=== PATIENT | male | born 1965 | race Caucasian/White ===

== ENCOUNTER 2017-03-31 14:45 | Emergency (ER) | payer BC ==
--- NOTE | 2017-03-31 16:02 | XRAY Preliminary Report ---
Exam: XR CHEST 2 VIEW X-RAY IMPRESSION: Normal 2-view chest radiography. [facility] SITE ID: [id number]
--- NOTE | 2017-03-31 16:05 | XRAY Report ---
EXAM: CHEST RADIOGRAPHY EXAM DATE: 03/31/2017 03:47 PM. CLINICAL HISTORY: History of asthma as a child. Cough and congestion for 10 days. COMPARISON: 11/26/2012. TECHNIQUE: 2 views. FINDINGS: Lungs/Pleura: No focal opacities evident. No pleural effusion. No pneumothorax. Normal volumes. Mediastinum: Heart and mediastinal contours are unremarkable. Other: None. IMPRESSION: Normal 2-view chest radiography. [facility] Referring Provider Line: [phone] SITE ID: [id number]
--- NOTE | 2017-03-31 16:31 | ED Physician Documentation ---
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 at night for 10 days not getting better sometimes feels wheezy concerned about going to work Review of Systems Constitutional: reports: Fatigue Nose: reports: Congestion Respiratory: reports: Cough Endocrine: denies: Easy bruising / bleeding Immunocompromised: denies: Immunocompromised PD PAST MEDICAL HISTORY - Past Medical History Past Medical History: Yes - Past Surgical History Past Surgical History: No - Present Medications Home Medications: Ambulatory Orders Medication Instructions Recorded Confirmed Albuterol Sulfate [Proair Hfa 2 puffs INH Q4H PRN #1 inhaler 03/31/17 Inhaler] Benzonatate [Tessalon] 100 mg PO TID PRN #20 capsule 03/31/17 Fluticasone [Flonase] 1 sprays IBLLIE BID PRN #1 bottle 03/31/17 guaiFENesin/DEXTROMETHORPHAN 10 ml PO Q6H PRN #120 ml 03/31/17 [Robitussin Dm] - Allergies Allergies/Adverse Reactions: Allergies Allergy/AdvReac Type Severity Reaction Status Date / Time No Known Drug Allergies Allergy Verified 03/31/17 14:50 - Social History Does the pt smoke?: No Smoking Status: Never smoker Does the pt have substance abuse?: No - Immunizations Immunizations are current?: Yes PD ED PE NORMAL - Vitals Vital signs reviewed: Yes - General General: Alert and oriented X 3 - HEENT HEENT: PERRL, Ears normal, Moist mucous membranes, Pharynx benign - Neck Neck: Supple, no meningeal sign - Cardiac Cardiac: RRR - Respiratory Respiratory: Other (coarse bases julius o wheeze) - Abdomen Abdomen: Soft, Non tender - Derm Derm: Normal color - Neuro Neuro: Alert and oriented X 3 Results - Vitals Vitals: Vital Signs - 24 hr 03/31/17 14:47 Temperature 37.3 C Heart Rate 84 Respiratory 20 Rate Blood Pressure 150/93 H O2 Saturation 98 Oxygen O2 Source Room air - EKG (time done) 1454 Rate: Rate (enter#) (68) Rhythm: NSR, Other (PVC) Ischemia: No: Q waves (small preceding R inf leads so not Q waves as sugegsted by auto interp) - Rads (name of study) CXR Radiology: See rad report (NACPD) Departure - Departure Disposition: 01 Home, Self Care Clinical Impression: PVC (premature ventricular contraction) URI (upper respiratory infection) Qualifiers: URI type: unspecified viral URI Qualified Code(s): J06.9 - Acute upper respiratory infection, unspecified Instructions: ED Upper Resp Infec No Abx Tx, Premature Ventricular Contract About Follow-Up: Fernando Montalvo MD [Primary Care Provider] - Prescriptions: Albuterol Sulfate [Proair Hfa Inhaler] 2 puffs INH Q4H PRN #1 inhaler PRN Reason: Shortness Of Air/Wheezing Benzonatate [Tessalon] 100 mg PO TID PRN #20 capsule PRN Reason: to ease cough Fluticasone [Flonase] 1 sprays BILLIE BID PRN #1 bottle PRN Reason: congestion guaiFENesin/DEXTROMETHORPHAN [Robitussin Dm] 10 ml PO Q6H PRN #120 ml PRN Reason: Cough Comments: The xray is fine - no pneumonia. Your EKG showed an extra beat called a premature ventricular beat - these can be felt as palpitations but are not dangerous unless many of them occur in a row (not you case) If you have lots of palpitations a wear at home heart monitor might be useful ( your PMD can arrange this) So I think it is safe for you to go home Please rest and drink plenty of fluids I write a note for work. And prescribed some medications to ease your symptoms Forms: Activity restrictions
[2017-03-31 16:48] VITALS: BP 128/82
== END 2017-03-31 16:58 | disposition home or self-care (01) ==
LOC: ED 14:45
DX: I49.3 Ventricular premature depolarization (principal); J06.9 Acute upper respiratory infection, unspecified
CPT/HCPCS: 71046; 93005; 99283

== ENCOUNTER 2018-01-02 10:49 | Observation (INO) | payer BC ==
[2018-01-02] MEDS ORDERED: SODIUM CHLORIDE 0.9% 1,000 ML IV ONE (11:33)
[2018-01-02] MEDS ORDERED: cefTRIAXone 1 GM in SODIUM CHLORIDE 0.9% MINIBAG 100 ML IV STA (11:33)
[2018-01-02] MEDS ORDERED: DEXAMETHASONE 10 MG/ML VIAL IV STA (11:33)
--- NOTE | 2018-01-02 11:36 | ED Physician Documentation ---
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 had L lower molar extraction was on amox developed swelling changed to augmentin now swelling worse, sublingual swelling diff swallowing a little SOA and subj fever seen by maxillofacial and sent for CT and labs and specialist will be to ER to see pt Review of Systems Constitutional: reports: Fever Throat: reports: Dental pain / toothache Cardiac: denies: Chest pain / pressure Respiratory: reports: Dyspnea GI: denies: Abdominal Pain, Vomiting, Diarrhea Musculoskeletal: reports: Neck pain (anterior) Endocrine: denies: Easy bruising / bleeding Immunocompromised: denies: Immunocompromised PD PAST MEDICAL HISTORY - Past Surgical History Past Surgical History: No - Present Medications Home Medications: Ambulatory Orders Medication Instructions Recorded Confirmed Albuterol Sulfate [Proair Hfa 2 puffs INH Q4H PRN 01/02/18 01/02/18 Inhaler] - Allergies Allergies/Adverse Reactions: Allergies Allergy/AdvReac Type Severity Reaction Status Date / Time No Known Drug Allergies Allergy Verified 03/31/17 14:50 - Social History Does the pt smoke?: No Smoking Status: Never smoker Does the pt have substance abuse?: No - Immunizations Immunizations are current?: Yes PD ED PE NORMAL - Vitals Vital signs reviewed: Yes - HEENT HEENT: Other (no trisumus, no dry socket, sublingual erythema swelling and TTP extensing to anterior neck) - Cardiac Cardiac: RRR - Respiratory Respiratory: No respiratory distress, Clear bilaterally (no wheeze or stridor) - Derm Derm: Normal color - Neuro Neuro: Alert and oriented X 3 Results - Vitals Vitals: Vital Signs - 24 hr 01/02/18 01/02/18 10:51 14:05 Temperature 36.8 C Heart Rate 73 79 Respiratory 16 16 Rate Blood Pressure 146/99 H 129/84 H O2 Saturation 99 96 Oxygen O2 Source Room air - Labs Labs: Laboratory Tests 01/02/18 01/02/18 11:30 11:30 WBC 7.4 RBC 4.51 L Hgb 14.7 Hct 41.0 L MCV 91.1 MCH 32.5 H MCHC 35.7 RDW 12.5 Plt Count 175 MPV 8.1 Neut # (Auto) 6.3 Lymph # (Auto) 0.5 L [place] # (Auto) 0.6 Eos # (Auto) 0.0 Baso # (Auto) 0.0 Absolute Nucleated RBC 0.00 Nucleated RBC % 0.0 Sodium 136 Potassium 4.1 Chloride 100 L Carbon Dioxide 28 Anion Gap 8.0 BUN 17 Creatinine 0.8 Estimated GFR (MDRD) 101 Glucose 117 H Calcium 8.8 - Rads (name of study) CT neck with IV con Radiology: See rad report (abnormal fascial plane edema L submandibular space extending to anterior cervical space, bone cavity l mandible c/w extraction and so inflammation and cellulitis could be 2/2 this, reactive upper cervical reactive lymphadenopathy) PD MEDICAL DECISION MAKING - ED course ED course: 1400 - no sig change after IV steroids and rocephin CT shows STS cellultiis but not abscess awaiting Dr herrera pt updated Dr Herrera in to see pt [address] in obs for futher IV ab and care Departure - Departure Disposition: ED Place in Observation Clinical Impression: Ludwigs angina Condition: Good Discharge Date/Time: 01/02/18 15:26
[2018-01-02 11:38] LABS: BASOPHILS % (AUTO) 0.3 %; EOSINOPHILS % (AUTO) 0.4 %; HGB - HEMOGLOBIN 14.7 g/dL (14.0-18.0); LYMPHOCYTES # (AUTO) 0.5 10^3/uL (1.5-3.5); LYMPHOCYTES % (AUTO) 7.3 %; MEAN CORPUSCULAR HEMOGLOBIN 32.5 pg (27.0-31.0); MEAN CORPUSCULAR HGB CONC 35.7 g/dL (32.0-36.0); MEAN CORPUSCULAR VOLUME 91.1 fL (80.0-94.0); MEAN PLATELET VOLUME 8.1 fL (7.4-11.4); MONOCYTES # (AUTO) 0.6 10^3/uL (0.0-1.0); MONOCYTES % (AUTO) 7.4 %; NEUTROPHILS # (AUTO) 6.3 10^3/uL (1.5-6.6); NEUTROPHILS % (AUTO) 84.6 %; PLT - PLATELET COUNT 175 10^3/uL (130-450); RED BLOOD COUNT 4.51 10^6/uL (4.70-6.10); RED CELL DISTRIBUTION WIDTH 12.5 % (12.0-15.0); WHITE BLOOD COUNT 7.4 x10^3/uL (4.8-10.8)
[2018-01-02 11:50] LABS: CALCIUM 8.8 mg/dL (8.5-10.3); CREATININE 0.8 mg/dL (0.6-1.2)
[2018-01-02] MEDS ORDERED: IOPAMIDOL-300 100 ML VIAL ONE (12:22)
[2018-01-02] MEDS ORDERED: IOPAMIDOL-300 100 ML VIAL IVP ONE (12:26)
--- NOTE | 2018-01-02 13:15 | CT Report ---
Reason: sublingual and ant neck pain and swelling s/p LL t Procedure Date: 01/02/2018 Accession Number: [id number] / [id number] Procedure: CT - Neck Soft Tissue W/ CPT Code: FULL RESULT: EXAM: CT SOFT TISSUE NECK WITH CONTRAST. EXAM DATE: 01/02/2018 12:27 PM. HISTORY: Sublingual and anterior neck pain and swelling. COMPARISONS: None. TECHNIQUE: Routine soft tissue neck CT protocol. (Note the anterior aspect of the face from the orbits through the jaw are not included on this study.) Reconstructions: Coronal and sagittal. IV contrast: 80 cc Isovue-300. In accordance with CT protocol optimization, one or more of the following dose reduction techniques were utilized for this exam: automated exposure control, adjustment of mA and/or KV based on patient size, or use of iterative reconstructive technique. FINDINGS: Visualized Intracranial Contents: Unremarkable. Orbits: Partially visualized posterior orbits are unremarkable Sinuses: Visualized paranasal sinuses and mastoid air cells are clear. Oral cavity: The visualized oral cavity is unremarkable. The floor of the mouth is symmetric. Note is made of bone cavity filled with soft tissue and gas from extraction of left mandibular posterior tricuspid tooth. No cortical erosion is seen. Pharynx : Pharyngeal mucosa is unremarkable. The infratemporal fossa, parapharyngeal spaces, and retropharyngeal space are unremarkable. The base of the tongue is symmetric and unremarkable. The airway is patent. Larynx: Larynx and supraglottic airway are patent without mass lesion. Vocal cords are symmetric. The visualized trachea is unremarkable. Parotid and Submandibular Glands: Symmetric and unremarkable. Lymph Nodes: Mild prominence to level 1 and level 2 cervical lymph nodes are seen, greater on the left. No hypodensity is seen to suggest abscess. Soft tissues: Moderate fascial plane edema is seen centered in the left upper neck and lower face. This involves the submandibular space and adjacent anterior cervical space. Minimal thickening of the left platysma muscle is noted. No abnormal fluid collection is seen. No mass lesion or abnormal enhancement. Vascular Structures: Patent and unremarkable. Thyroid Gland: Normal. Lung: The visualized lung apices are clear. Bones: No evidence of acute fracture or malalignment. There are mild degenerative changes. Other: None. IMPRESSION: 1. Abnormal fascial plane edema in the left submandibular space extending to the anterior cervical space. Etiology of this is unknown. Note there is bone cavity in the left mandible from extraction of left posterior tricuspid tooth. No cortical erosion is seen; however, inflammatory process and cellulitis may be secondary to tooth extraction. 2. Mild reactive upper cervical lymphadenopathy, greater on the left. [facility]
[2018-01-02] MEDS ORDERED: ONDANSETRON 4 MG/2 ML VIAL IVP PRN (14:46)
[2018-01-02] MEDS ORDERED: SODIUM CHLORIDE FLUSH 0.9% 10 ML SYRINGE IVP PRN (14:46)
[2018-01-02] MEDS ORDERED: MORPHINE 2 MG/ML CARPUJECT IVP PRN (14:46)
[2018-01-02] MEDS ORDERED: ONDANSETRON ODT 4 MG TABLET TL PRN (14:46)
[2018-01-02] MEDS ORDERED: ALBUTEROL NEB 2.5 MG/3 ML INH PRN (14:55)
--- NOTE | 2018-01-02 15:03 | HISTORY & PHYSICAL EXAMINATION ---
Chief Complaint - Chief Complaint Chief Complaint: Neck swelling History of Present Illness - Admitted From Admitted From:: ER - History of Present Illness HPI Comment/Other: Ben is a 52 yo M who had tooth #18 removed about seven days ago. At that time he had no swelling but did complain of mild submandibular space ttp. Postoperatively he was placed on amoxicillin. He reported to my office yesterday with 1 day duration rapidly increasing submandibular space swelling and pain. Subjective fever. Denies n,v. Switched abx to augmentin, f/u in 24 hrs. Came back today and had slightly worsened. Sent to ER for cbc w/ dif and ct neck w/ contrast. Endorses dysphagia, dyspnea, descending deep neck pain, globus, voice change no drainage intraorally History - Past Medical History Cardiovascular: reports: None Respiratory: reports: Other (feeling of airway swelling and difficulty breating when supine) Neuro: reports: None Endocrine/Autoimmune: reports: None GI: reports: None HEENT: reports: Other (as above in HPI) Psych: reports: Anxiety Musculoskeletal: reports: None Derm: reports: None MRSA Hx?: No - Past Surgical History General: reports: Other (hernia repair and R knee scope) - Family & Social History Family History Comment/Other: Family history reviewed and no relevant history to this encounter Living arrangement: At home Living Situation: With family - Substance History Use: Uses substance without health or social issues: NONE Meds/Allgy - Home Medications Home Medications: Ambulatory Orders Medication Instructions Recorded Confirmed Albuterol Sulfate [Proair Hfa 2 puffs INH Q4H PRN #1 inhaler 03/31/17 Inhaler] Benzonatate [Tessalon] 100 mg PO TID PRN #20 capsule 03/31/17 Fluticasone [Flonase] 1 sprays BILLIE BID PRN #1 bottle 03/31/17 guaiFENesin/DEXTROMETHORPHAN 10 ml PO Q6H PRN #120 ml 03/31/17 [Robitussin Dm] - Allergies Allergies/Adverse Reactions: Allergies Allergy/AdvReac Type Severity Reaction Status Date / Time No Known Drug Allergies Allergy Verified 03/31/17 14:50 Review of Systems - Other Findings Other Findings: A 14 point ROS was completed and found to be negative except as noted above in HPI Exam - Vital Signs Reviewed Vital Signs: Yes Vital Signs: Vital Signs x48h Temp Pulse Resp BP Pulse Ox 01/02/18 14:05 79 16 129/84 H 96 01/02/18 10:51 36.8 C 73 16 146/99 H 99 - Physical Exam General Appearance: positive: Mild distress Eyes Bilateral: positive: PERRL, EOMI ENT: positive: Other (RAGHAVENDRA wnl. Occlusion S&R. extraction site #18 healing wnl. Moderate FOM edema and mild elevation and ttp, L>R. Tongue not elevated. No lateral pharyngeal swelling. Uvula midline.) Neck: positive: Other (Left submandibular space swelling, spreading anterior to the submental space and beginning to spread to the R submandibular space. The swelling is soft and the skin remains mobile. No fluctuance. The inferior border of the mandible is palpable throughout. Moderate erythema of the skin overlying the swelling. TTP coursing down the neck, nearing the sternal notch, but very mild and no edema past the thyroid cartilage.) Respiratory: positive: No respiratory distress, Breath sounds nml Cardiovascular: positive: Regular rate & rhythm, No murmur Peripheral Pulses: positive: 2+ Abdomen: positive: Non-tender, No distention. negative: Tenderness Skin: positive: Other (Clean,dry, and intact w/ exception of the erythema of the neck as described above.) Extremities: positive: Full ROM, Nml appearance Neurologic/Psychiatric: positive: Oriented x3, CN's nml (2-12) Conclusion/Plan - Problem List (1) Submandibular space infection Conclusion/Plan: Assessment: 52 yo M w/ 3 days of worsening L submandibular, L sublingual, submental spp cellulitis s/p removal of necrotic tooth #18. - worsening on outpt abx - dysphagia, globus, dyspnea, dysphonia - all ominous signs - wbc only 7.4, currently afebrile Plan: Monitor overnight - IV abx: Unasyn 3g q6h - elevate HOB 30 degrees - IV decadron 10m q6h x 24 hrs - re-eval in am, surgery if significantly worse Please call immediately if pt complains of worsening airway symptoms. [phone]. Kishor Kong DDS - Lab Results Fish Bones: 01/02/18 11:30 01/02/18 11:30 - Diagnostic Imaging Results Diagnostic Imaging Results: positive: Final report reviewed Diagnostic Imaging Results Comments: The CT neck w/ contrast demonstrates a generalized cellulitis of the deep spaces of the left neck with a focus around the submandibular space. There is also cellulitis of the overlying skin, but mild. No appreciable abscess. Very mild deviation of the airway to the R, but airway widely patent with mild effacement of the L pharyngeal wall. - Other Other Results/Comments: Failed outpatient antibiotics and close monitoring. Requires hospitalization for IV antibiotics and airway monitoring. Worsening of disease likely to result in airway compromise and need for urgent surgical intervention.
[2018-01-02] MEDS: DEXAMETHASONE 10 MG/ML VIAL IVP SCH ×2 (16:30→21:26)
[2018-01-02] MEDS: AMPICILLIN/SULBACTAM 3 GM in SODIUM CHLORIDE 0.9% MINIBAG 100 ML IV SCH ×2 (16:30→21:25)
[2018-01-02] MEDS: SODIUM CHLORIDE FLUSH 0.9% 10 ML SYRINGE IVP SCH (16:30)
[2018-01-02] MEDS: ACETAMINOPHEN 325 MG TABLET PO PRN (19:11)
[2018-01-03] MEDS ORDERED: SODIUM CHLORIDE 0.9% 1,000 ML IV SCH (00:01)
[2018-01-03] MEDS: SODIUM CHLORIDE FLUSH 0.9% 10 ML SYRINGE IVP SCH ×2 (00:10→09:48)
[2018-01-03] MEDS: ACETAMINOPHEN 325 MG TABLET PO PRN (03:54)
[2018-01-03] MEDS: DEXAMETHASONE 10 MG/ML VIAL IVP SCH ×2 (03:55→10:05)
[2018-01-03] MEDS: AMPICILLIN/SULBACTAM 3 GM in SODIUM CHLORIDE 0.9% MINIBAG 100 ML IV SCH ×2 (03:56→09:48)
[2018-01-03 08:28] VITALS: BP 137/65
[2018-01-03] MEDS ORDERED: POLYETHYLENE GLYCOL 3350 17 GM PACKET PO SCH (09:00)
--- NOTE | 2018-01-03 12:25 | PROVIDER PROGRESS NOTE ---
Subjective - Prog Note Date Prog Note Date: 01/03/18 Prog Note Time: 12:23 - Subjective Pt reports feeling: Improved (He reports significant improvement in swallowing and speaking.) Objective - Vital Signs/Intake & Output Vital Signs: Vital Signs x48h Temp Pulse Resp BP Pulse Ox 01/03/18 08:00 36.6 C 66 18 137/65 H 97 Intake & Output: Intake & Output 12/31/17 01/01/18 01/02/18 01/03/18 23:59 23:59 23:59 23:59 Intake Total 2059 132 Balance 2059 1319 - Objective General Appearance: positive: No acute distress, Alert Eyes Bilateral: positive: PERRL, EOMI ENT: positive: Other (There is swelling of the left sublingual gland. Clear saliva from the L yandel's duct. No purulence, no fluctuance RAGHAVENDRA wnl uvula midline, no lateral pharyngeal swelling L FOM edema, mild, improved. No R ROM edema) Neck: positive: Other (Significantly improved swelling. No ttp to the sternal notch as previously observed.) - Lab Results Fish Bones: 01/02/18 11:30 01/02/18 11:30 Assessment/Plan - Problem List (1) Submandibular space infection Impression: Significantly improved today. Etiology most likely related to tooth #18. Possibility of L sublingual salivary gland origin, will continue to monitor in office Plan: Discharge to home Continue augmentin as given prior to admit. f/u on Friday
== END 2018-01-03 12:50 | disposition home or self-care (01) ==
LOC: ED 10:49 → MS2 14:50
PROVIDERS: ADMIT Dentist Oral and Maxillofacial Surgery; ATTEND Dentist Oral and Maxillofacial Surgery
DX: L03.211 Cellulitis of face (principal); Z79.2 Long term (current) use of antibiotics; Z98.818 Other dental procedure status
CPT/HCPCS: 36415; 70491; 80048; 85025; 96365; 96366; 96367; 96375; 96376; 99283; 99284; A9270; G0378; Q9967

== ENCOUNTER 2018-05-17 13:37 | Emergency (ER) | payer BC ==
--- NOTE | 2018-05-17 14:20 | ED Physician Documentation ---
PD HPI UPPER EXT INJURY - Stated complaint Stated Complaint: HAND INJURY - Chief complaint Chief Complaint: Ext Problem - History obtained from History obtained from: Patient - History of Present Illness Location: Right, Hand Type of injury: Blunt / blow Timing - onset: How many days ago (5) Similar symptoms before: Has not had sx before - Additonal information Additional information: The patient is a 53-year-old male with right hand pain and swelling. He punched the dashboard of his car 5 days ago. There was initially no significant pain, but he is concerned now because persistent dorsal swelling and discomfort. It is worse since lifting rocks in his yard yesterday. He is right-hand dominant. He denies history of similar symptoms in the past. Review of Systems Constitutional: denies: Fever Nose: denies: Congestion Respiratory: denies: Dyspnea Skin: denies: Rash, Abrasion (s) Musculoskeletal: reports: Extremity pain (right hand), Extremity swelling (right hand) Neurologic: denies: Focal weakness, Numbness PD PAST MEDICAL HISTORY - Past Medical History Past Medical History: No Cardiovascular: None Respiratory: Other Neuro: None Endocrine/Autoimmune: None GI: None : None HEENT: Other Psych: Anxiety Musculoskeletal: None Derm: Other - Past Surgical History Past Surgical History: No General: Hiatal hernia repair Ortho: Carpal Tunnel surgery, Other - Present Medications Home Medications: Ambulatory Orders Medication Instructions Recorded Confirmed No Known Home Medications 05/17/18 05/17/18 - Allergies Allergies/Adverse Reactions: Allergies Allergy/AdvReac Type Severity Reaction Status Date / Time No Known Drug Allergies Allergy Verified 05/17/18 13:52 - Social History Does the pt smoke?: No Smoking Status: Never smoker Does the pt have substance abuse?: No - Immunizations Immunizations are current?: Yes PD ED PE NORMAL - Vitals Vital signs reviewed: Yes (Borderline systolic hypertension initially.) - General General: Alert and oriented X 3, Well developed/nourished - HEENT HEENT: Atraumatic - Respiratory Respiratory: No respiratory distress - Derm Derm: No rash - Extremities Extremities: Other (There is mild soft tissue swelling over the dorsum of the right hand, with mild tenderness to palpation of the mid hand, over the third and fourth metacarpals. There is no tenderness with axial loading on the individual digits. He has full flexion and extension of the DIP, PIP, and MCP joints. Distal neurovascular is intact.) - Neuro Neuro: Alert and oriented X 3, No motor deficit, No sensory deficit Results - Vitals Vitals: Vital Signs - 24 hr 05/17/18 13:50 Temperature 36 C L Heart Rate 78 Respiratory 18 Rate Blood Pressure 140/85 H O2 Saturation 95 Oxygen O2 Source Room air - Rads (name of study) right hand Radiology: Prelim report reviewed, EMP read contemporaneously, See rad report (Mild soft tissue swelling, without evidence of acute osseous injury.) PD MEDICAL DECISION MAKING - ED course Complexity details: reviewed results, re-evaluated patient, considered differential, d/w patient, d/w family ED course: The patient's presentation is most consistent with contusion to the right hand. There is no evidence of bony abnormality on radiographic imaging. On physical exam there is no evidence of infection. I discussed with him and his the expected course of injury, symptomatic treatment and outpatient follow-up, as well as potentially worrisome signs or symptoms that should prompt reevaluation in the emergency department. Departure - Departure Disposition: 01 Home, Self Care Clinical Impression: Contusion of right hand Qualifiers: Encounter type: initial encounter Qualified Code(s): S60.221A - Contusion of right hand, initial encounter Condition: Stable Instructions: ED Contusion Hand Follow-Up: Danny Montalvo MD [Primary Care Provider] - Comments: Keep your right hand elevated as much of the time as possible. You can use Tylenol or ibuprofen if needed for pain. Let pain be your guide to activity level. Follow-up with your primary physician if not improving within 2 weeks. Return to the emergency department if you develop increasing swelling or pain, any sign of infection, or otherwise worsening symptoms.
--- NOTE | 2018-05-17 14:51 | XRAY Report ---
Reason: swelling/pain 1 week after injury Procedure Date: 05/17/2018 Accession Number: [id number] / [id number] Procedure: XR - Hand 3 View RT CPT Code: FULL RESULT: EXAM: RIGHT HAND RADIOGRAPHY EXAM DATE: 05/17/2018 02:09 PM. CLINICAL HISTORY: Swelling/pain 1 week after dashboard injury. COMPARISON: None. TECHNIQUE: 3 views. FINDINGS: Bones: No fractures or bone lesions. Joints: No subluxations. Soft Tissues: Mild soft tissue swelling over dorsum of hand. IMPRESSION: No evidence for acute osseous injury. Mild soft tissue swelling. [facility]
[2018-05-17 15:11] VITALS: BP 113/71
== END 2018-05-17 15:11 | disposition home or self-care (01) ==
LOC: ED 13:37
DX: S60.221A Contusion of right hand, initial encounter (principal); W22.8XXA Striking against or struck by other objects, initial encounter; Y92.89 Other specified places as the place of occurrence of the external cause
CPT/HCPCS: 99282; 99283

== ENCOUNTER 2019-08-09 08:00 | Outpatient (CLI) | payer BC | END 2019-08-09 23:59 | disposition home or self-care (01) | LOC: LAB 08:00 | PROVIDERS: ATTEND Registered Nurse | DX: R53.83 Other fatigue (principal); Z20.828 Contact with and (suspected) exposure to other viral communicable diseases | CPT/HCPCS: 81599 ==